=== PATIENT | female | born 1970 | race American Indian/Alaskan Native ===

== ENCOUNTER 2019-09-18 17:22 | Emergency (ER) | payer SELFPAY ==
--- NOTE | 2019-09-18 17:45 | Emergency Department Report ---
Blank Doc - Documentation Documentation: 48-year-old female that presents with bilateral flank pain. This initial assessment/diagnostic orders/clinical plan/treatment(s) is/are subject to change based on patient's health status, clinical progression and re- assessment by fellow clinical providers in the ED. Further treatment and workup at subsequent clinical providers discretion. Patient/guardians urged not to elope from the ED as their condition may be serious if not clinically assessed and managed. Initial orders include: 1- Patient sent to [facility] for further evaluation and treatment 2- UA
[2019-09-18 17:46] VITALS: BP 144/102
[2019-09-18 18:38] LABS: Bilirubin,Urine NEG (Negative); Blood,Urine NEG (Negative); Color,Urine Yellow (Yellow); Mucus,Urine FEW /HPF; Protein,Urine <15 mg/dL mg/dL (Negative); Urobilinogen,Urine < 2.0 mg/dL (<2.0)
[2019-09-18] MEDS ORDERED: HYDROcodone/ACETAMINOPHEN 7.5-325MG TAB PO ONE (20:05)
[2019-09-18] MEDS ORDERED: KETOROLAC 30 MG/1 ML INJ IM ONE (20:05)
[2019-09-18] MEDS ORDERED: ONDANSETRON 4 MG ODT TAB PO ONE (20:05)
[2019-09-18] MEDS ORDERED: CYCLOBENZAPRINE 10 MG TAB PO ONE (20:05)
[2019-09-18] MEDS ORDERED: dexAMETHasone 20 MG/5 ML VIAL IM ONE (20:05)
--- NOTE | 2019-09-18 21:31 | Emergency Department Report ---
ED Back Pain/Injury HPI - General Chief Complaint: Back Pain/Injury Stated Complaint: BACK PAIN Time Seen by Provider: 09/18/19 17:45 Source: patient Limitations: No Limitations - History of Present Illness Initial Comments: Patient is a 48-year-old -Monegasque female with a history of hypertension presents to the ED with contrast of acute onset persistent nontraumatic low back pain for the last 2 days. Patient states that the pain is worse with any movement or palpation of lower back diffusely. Patient denies heavy lifting, hematochezia, follow, numbness and tingling or weakness of lower extremities bilaterally, saddle paresthesia, abdominal pain, nausea, vomiting, diarrhea, fever, chills, urinary or bowel incontinence, dysuria, urinary frequency and urgency and hematuria. MD Complaint: back pain (lower back pain) -: Sudden, days(s) (2) Similar Symptoms Previously: No Place: home Radiation: none Severity: severe Severity scale (0 -10): 8 Quality: sharp, aching Consistency: constant Improves With: none Worsens With: movement, walking Context: other (spontaneous) Associated Symptoms: denies other symptoms. denies: confusion, weakness, chest pain, numbness, difficulty walking, cough, difficulty urinating, diaphoresis, incontinence, fever/chills, constipation, headaches, abdominal pain, loss of appetite, nausea/vomiting, rash, seizure, shortness of breath, other Treatments Prior to Arrival: heat therapy - Related Data Previous Rx's Medication Instructions Recorded Last Taken Type Butalbit/Acetamin/Caff/Codeine 1 each PO Q4HR PRN #20 capsule 01/09/14 Unknown Rx [Fioricet-Cod 12-55-295-40 Cap] Promethazine [Phenergan] 25 mg PO Q6H PRN #20 tablet 01/09/14 Unknown Rx Ondansetron [Zofran Odt] 4 mg PO Q8HR PRN #10 tab.rapdis 09/12/18 Unknown Rx Naproxen 500 mg PO Q12H PRN #30 tablet 09/18/19 Unknown Rx methOCARBAMOL [Robaxin TAB] 750 mg PO Q8H PRN #24 tablet 09/18/19 Unknown Rx predniSONE [Deltasone] 40 mg PO QDAY #10 tab 09/18/19 Unknown Rx traMADoL [Ultram 50 MG tab] 50 mg PO Q6HR PRN #10 tablet 09/18/19 Unknown Rx Allergies Allergy/AdvReac Type Severity Reaction Status Date / Time banana Allergy Angioedema Uncoded 01/08/14 20:42 nut Allergy Angioedema Uncoded 01/08/14 20:43 ED Review of Systems ROS: Stated complaint: BACK PAIN Other details as noted in HPI Constitutional: denies: chills, fever Eyes: denies: eye pain, eye discharge, vision change ENT: denies: ear pain, throat pain Respiratory: denies: cough, shortness of breath, wheezing Cardiovascular: denies: chest pain, palpitations Endocrine: no symptoms reported Gastrointestinal: denies: abdominal pain, nausea, diarrhea Genitourinary: denies: urgency, dysuria, discharge Musculoskeletal: back pain (MUSCLE SPASMS), arthralgia. denies: joint swelling Skin: denies: rash, lesions Neurological: denies: headache, weakness, paresthesias Psychiatric: denies: anxiety, depression Hematological/Lymphatic: denies: easy bleeding, easy bruising ED Past Medical Hx - Past Medical History Hx Hypertension: Yes Hx Headaches / Migraines: Yes - Surgical History Additional Surgical History: hysterectomy. tubal ligation. surgery after right arm fx - Social History Smoking Status: Current Every Day Smoker Substance Use Type: None - Medications Home Medications: Home Medications Medication Instructions Recorded Confirmed Last Taken Type Butalbit/Acetamin/Caff/Codeine 1 each PO Q4HR PRN #20 capsule 01/09/14 Unknown Rx [Fioricet-Cod [id number] Cap] Promethazine [Phenergan] 25 mg PO Q6H PRN #20 tablet 01/09/14 Unknown Rx Ondansetron [Zofran Odt] 4 mg PO Q8HR PRN #10 tab.rapdis 09/12/18 Unknown Rx Naproxen 500 mg PO Q12H PRN #30 tablet 09/18/19 Unknown Rx methOCARBAMOL [Robaxin TAB] 750 mg PO Q8H PRN #24 tablet 09/18/19 Unknown Rx predniSONE [Deltasone] 40 mg PO QDAY #10 tab 09/18/19 Unknown Rx traMADoL [Ultram 50 MG tab] 50 mg PO Q6HR PRN #10 tablet 09/18/19 Unknown Rx ED Physical Exam - General Limitations: No Limitations General appearance: alert, in no apparent distress - Head Head exam: Present: atraumatic, normocephalic, normal inspection - Eye Eye exam: Present: normal appearance, PERRL, EOMI Pupils: Present: normal accommodation - ENT ENT exam: Present: normal exam, normal orophraynx, mucous membranes moist, TM's normal bilaterally, normal external ear exam - Neck Neck exam: Present: normal inspection, full ROM - Respiratory Respiratory exam: Present: normal lung sounds bilaterally. Absent: respiratory distress, wheezes, rales, rhonchi, chest wall tenderness, accessory muscle use, decreased breath sounds, prolonged expiratory - Cardiovascular Cardiovascular Exam: Present: regular rate, normal rhythm, normal heart sounds. Absent: systolic murmur, diastolic murmur, rubs, gallop - GI/Abdominal GI/Abdominal exam: Present: soft, normal bowel sounds. Absent: tenderness, guarding, hyperactive bowel sounds, hypoactive bowel sounds, organomegaly - Extremities Exam Extremities exam: Present: normal inspection, full ROM, normal capillary refill - Back Exam Back exam: Present: normal inspection, full ROM, tenderness (palpable lumbosacral paraspinal musculoskeletal tenderness), muscle spasm, paraspinal tenderness - Neurological Exam Neurological exam: Present: alert, oriented X3, CN II-XII intact, normal gait, reflexes normal - Psychiatric Psychiatric exam: Present: normal affect, normal mood - Skin Skin exam: Present: warm, dry, intact, normal color. Absent: rash ED Course Vital Signs 09/18/19 09/18/19 17:44 20:39 Temperature 98.5 F Pulse Rate 78 Respiratory 18 18 Rate Blood Pressure 144/102 O2 Sat by Pulse 99 Oximetry ED Medical Decision Making - Medical Decision Making This is a 48-year-old female who presented to the ED with complaint of acute onset persistent nontraumatic low back pain for 2 days. In the ED, patient is alert and oriented 3 and is not in distress. Patient was treated for pain in the ED and urinalysis results is nonactionable. Patient symptoms are likely from musculoskeletal strains and muscle spasms of lumbosacral area. On reevaluation, patient's pain is well controlled with medications. Patient was discharged home on pain medications and muscle relaxants and advised to follow- up with her primary care physician in 7-10 days for reevaluation or return to the ED immediately if symptoms get worse. - Differential Diagnosis Muscle spasm; Muscle strain; acute low back pain; UTI Critical care attestation.: If time is entered above; I have spent that time in minutes in the direct care of this critically ill patient, excluding procedure time. ED Disposition Clinical Impression: Spasm of muscle of lower back, Strain of muscle, fascia and tendon of lower back, initial encounter Disposition: TO HOME OR SELFCARE Is pt being admited?: No Does the pt Need Aspirin: No Condition: Stable Instructions: Muscle Strain (ED), Muscle Spasm (ED), Low Back Strain (ED) Additional Instructions: Take medication with food, drink plenty fluids and follow-up with your primary care physician in 7-10 days for reevaluation. Return to the ED immediately if symptoms get worse. Prescriptions: predniSONE [Deltasone] 40 mg PO QDAY #10 tab Naproxen 500 mg PO Q12H PRN #30 tablet PRN Reason: Pain , Severe (7-10) methOCARBAMOL [Robaxin TAB] 750 mg PO Q8H PRN #24 tablet PRN Reason: Pain , Severe (7-10) traMADoL [Ultram 50 MG tab] 50 mg PO Q6HR PRN #10 tablet PRN Reason: Pain Referrals: [facility] [Outside] - 3-5 Days Forms: Work/School Release Form(ED) Time of Disposition: 21:31 Print Language: ROMANIAN
== END 2019-09-18 22:12 | disposition home or self-care (01) ==
LOC: ED 17:22
DX: S39.012A Strain of muscle, fascia and tendon of lower back, initial encounter (principal); M62.830 Muscle spasm of back; I10 Essential (primary) hypertension; G43.909 Migraine, unspecified, not intractable, without status migrainosus; Z98.51 Tubal ligation status; F17.200 Nicotine dependence, unspecified, uncomplicated; Z98.890 Other specified postprocedural states; Z91.018 Allergy to other foods; Z91.010 Allergy to peanuts; X58.XXXA Exposure to other specified factors, initial encounter; Y93.89 Activity, other specified; Y92.89 Other specified places as the place of occurrence of the external cause; Y99.8 Other external cause status
CPT/HCPCS: 81001; 96372; 99283; J1100; J1885; Q0162

== ENCOUNTER 2019-10-21 09:22 | Emergency (ER) | payer SELFPAY ==
[2019-10-21] MEDS ORDERED: traMADol 50 MG TAB PO ONE (12:08)
--- NOTE | 2019-10-21 12:10 | Emergency Department Report ---
ED Extremity Problem HPI - General Chief complaint: Extremity Problem,Nontraumatic Stated complaint: BILAT LEG PAIN Time Seen by Provider: 10/21/19 11:35 Source: patient Mode of arrival: Ambulatory Limitations: No Limitations - History of Present Illness Initial comments: This is a 48-year-old -Japanese female who presents to the emergency room for bilateral lower extremity pain for 2 weeks. Patient's patient states she had a ground-level fall 2 weeks ago walking into her home. She reports radiating pain from right hip to right foot and dull achy pain in left tibia- fibula to left foot. Reports pain is worse with weightbearing. She denies swelling, paresthesias, change in urinary or bowel pattern, bruising, or fever. MD Complaint: extremity pain Onset/Timin -: week(s) Location: bilateral lower extremity History of Same: No -: Yes arthralgia Radiation: none Severity scale (0 -10): 10 Quality: aching Consistency: intermittent Improves with: immobilization, other (heat) Worsens with: weight bearing Associated Symptoms: denies other symptoms - Related Data Previous Rx's Medication Instructions Recorded Last Taken Type Butalbit/Acetamin/Caff/Codeine 1 each PO Q4HR PRN #20 capsule 01/09/14 Unknown Rx [Fioricet-Cod 13-98-095-40 Cap] Promethazine [Phenergan] 25 mg PO Q6H PRN #20 tablet 01/09/14 Unknown Rx Ondansetron [Zofran Odt] 4 mg PO Q8HR PRN #10 tab.rapdis 09/12/18 Unknown Rx methOCARBAMOL [Robaxin TAB] 750 mg PO Q8H PRN #24 tablet 09/18/19 Unknown Rx predniSONE [Deltasone] 40 mg PO QDAY #10 tab 09/18/19 Unknown Rx Naproxen 500 mg PO Q12H PRN #30 tablet 10/21/19 Unknown Rx traMADoL [Ultram 50 MG tab] 50 mg PO Q6HR PRN #10 tablet 10/21/19 Unknown Rx Allergies Allergy/AdvReac Type Severity Reaction Status Date / Time banana Allergy Angioedema Uncoded 01/08/14 20:42 nut Allergy Angioedema Uncoded 01/08/14 20:43 ED Review of Systems ROS: Stated complaint: BILAT LEG PAIN Other details as noted in HPI Constitutional: denies: chills, fever Respiratory: denies: cough, shortness of breath, wheezing Cardiovascular: denies: chest pain, palpitations Gastrointestinal: denies: abdominal pain, nausea, diarrhea Musculoskeletal: arthralgia (BLE). denies: back pain, joint swelling Skin: denies: rash, lesions Neurological: denies: headache, weakness, paresthesias Psychiatric: denies: anxiety, depression ED Past Medical Hx - Past Medical History Previous Medical History?: Yes Hx Hypertension: Yes Hx Headaches / Migraines: Yes - Surgical History Past Surgical History?: Yes Additional Surgical History: hysterectomy. tubal ligation. surgery after right arm fx - Social History Smoking Status: Current Some Day Smoker Substance Use Type: None - Medications Home Medications: Home Medications Medication Instructions Recorded Confirmed Last Taken Type Butalbit/Acetamin/Caff/Codeine 1 each PO Q4HR PRN #20 capsule 01/09/14 Unknown Rx [Fioricet-Cod 49-85-303-40 Cap] Promethazine [Phenergan] 25 mg PO Q6H PRN #20 tablet 01/09/14 Unknown Rx Ondansetron [Zofran Odt] 4 mg PO Q8HR PRN #10 tab.rapdis 09/12/18 Unknown Rx methOCARBAMOL [Robaxin TAB] 750 mg PO Q8H PRN #24 tablet 09/18/19 Unknown Rx predniSONE [Deltasone] 40 mg PO QDAY #10 tab 09/18/19 Unknown Rx Naproxen 500 mg PO Q12H PRN #30 tablet 10/21/19 Unknown Rx traMADoL [Ultram 50 MG tab] 50 mg PO Q6HR PRN #10 tablet 10/21/19 Unknown Rx ED Physical Exam - General Limitations: No Limitations General appearance: alert, in no apparent distress - Respiratory Respiratory exam: Present: normal lung sounds bilaterally. Absent: respiratory distress - Cardiovascular Cardiovascular Exam: Present: regular rate, normal rhythm. Absent: systolic murmur, diastolic murmur, rubs, gallop - GI/Abdominal GI/Abdominal exam: Present: soft, normal bowel sounds - Extremities Exam Extremities exam: Present: full ROM, normal capillary refill. Absent: pedal edema, joint swelling, calf tenderness - Expanded Lower Extremity Exam Left Upper Leg exam: Present: normal inspection, full ROM Knee exam: Present: normal inspection, full ROM Lower Leg exam: Present: full ROM. Absent: tenderness, swelling, abrasion, laceration, ecchymosis, deformity, crepidus, dislocation, erythema, palpable cord, Daniela's sign Ankle exam: Present: full ROM (pain with FROM), tenderness (TTP of distal fibula). Absent: swelling, abrasion, laceration, ecchymosis, deformity, crepidus, dislocation, erythema, anterior draw sign Foot/Toe exam: Present: normal inspection, full ROM Neuro vascular tendon exam: Present: no vascular compromise Gait: Positive: observed and limited by pain Right Upper Leg exam: Present: normal inspection, full ROM Knee exam: Present: normal inspection, full ROM Lower Leg exam: Present: normal inspection, full ROM Ankle exam: Present: normal inspection, full ROM Foot/Toe exam: Present: normal inspection, full ROM Neuro vascular tendon exam: Present: no vascular compromise Gait: Positive: observed and limited by pain - Back Exam Back exam: Present: full ROM, paraspinal tenderness (left sacroiliac TTP, positive SLT on right). Absent: muscle spasm, vertebral tenderness, rash noted - Neurological Exam Neurological exam: Present: alert, oriented X3 - Psychiatric Psychiatric exam: Present: normal affect, normal mood - Skin Skin exam: Present: warm, dry, intact, normal color. Absent: rash ED Course Vital Signs 10/21/19 09:57 Temperature 98.7 F Pulse Rate 82 Respiratory 18 Rate Blood Pressure 130/90 O2 Sat by Pulse 97 Oximetry ED Medical Decision Making - Radiology Data Radiology results: report reviewed LEFT TIBIA AND FIBULA 2 VIEWS INDICATION / CLINICAL INFORMATION: pain s/p fall COMPARISON: None available. FINDINGS: BONES / JOINT(S): No acute fracture or subluxation. No significant arthritis. SOFT TISSUES: No significant abnormality. ADDITIONAL FINDINGS: None. LEFT FOOT 3 VIEWS INDICATION / CLINICAL INFORMATION: lateral pain s/p fall. COMPARISON: None available. FINDINGS: No fracture or other significant skeletal abnormality of the foot. On one image, there appears to be discontinuity of the very distal fibula, p ossibly ununited ossification center. If this area is of concern clinically, suggest radiograph of the ankle. - Medical Decision Making This is a 48 y.o. female that presents with BLE pain. Patient is stable and examined by me. Vitals are normal. Xrays of the left tibia-fibula and left foot obtained. Normal left foot x-ray. No fracture or other significant skeletal ab normality of the foot. On one image, there appears to be discontinuity of the very distal fibula, possibly ununited ossification center. If this area is of concern clinically, suggest radiograph of the ankle. Given analgesics while in the ER. A posterior/anterior leg splint was applied to left lower extremity. Patient given crutches with education. Referral to orthopedic surgery for continued care. Start Tramadol and naproxen. Patient agrees to ED plan of care. Discharged home stable. Follow up with PCP in 3 days. Critical care attestation.: If time is entered above; I have spent that time in minutes in the direct care of this critically ill patient, excluding procedure time. ED Disposition Clinical Impression: Bilateral lower extremity pain Left fibular fracture Qualifiers: Encounter type: initial encounter Fibula location: distal Fracture type: closed Fracture morphology: unspecified fracture morphology Qualified Code(s): S82.832A - Other fracture of upper and lower end of left fibula, initial encounter for closed fracture Disposition: - TO HOME OR SELFCARE Is pt being admited?: No Condition: Stable Instructions: Arthralgia (ED), Ankle Fracture (ED) Additional Instructions: Take your pain medication every 6-8 hours as needed for pain. Avoid applying weight to the left leg. Follow-up with orthopedic surgeon provided in the referral list below. Return to the emergency room with worsening symptoms. Prescriptions: Naproxen 500 mg PO Q12H PRN #30 tablet PRN Reason: Pain , Severe (7-10) traMADoL [Ultram 50 MG tab] 50 mg PO Q6HR PRN #10 tablet PRN Reason: Pain Referrals: PARMJIT EDOUARD MD [Staff Physician] - 3-5 Days [facility] [Provider Group] - 3-5 Days [facility] [Outside] - 3-5 Days JOSE CRALOS MONTOYA MD [Staff Physician] - 3-5 Days RUSTY HILLMAN MD [Staff Physician] - 3-5 Days Forms: Work/School Release Form(ED) Time of Disposition: 14:30
--- NOTE | 2019-10-21 14:01 | XRay Report ---
LEFT FOOT 3 VIEWS INDICATION / CLINICAL INFORMATION: lateral pain s/p fall. COMPARISON: None available. FINDINGS: No fracture or other significant skeletal abnormality of the foot. On one image, there appears to be discontinuity of the very distal fibula, possibly ununited ossifica tion center. If this area is of concern clinically, suggest radiograph of the ankle. Signer Name: Spencer Spencer MD Signed: 10/21/2019 1:56 PM Workstation Name: [id number]
--- NOTE | 2019-10-21 14:05 | XRay Report ---
LEFT TIBIA AND FIBULA 2 VIEWS INDICATION / CLINICAL INFORMATION: pain s/p fall COMPARISON: None available. FINDINGS: BONES / JOINT(S): No acute fracture or subluxation. No significant arthritis. SOFT TISSUES: No significant abnormality. ADDITIONAL FINDINGS: None. Signer Name: Ian Armijo MD Signed: 10/21/2019 2:00 PM Workstation Name: [id number]
[2019-10-21 15:02] VITALS: BP 128/88
== END 2019-10-21 14:50 | disposition home or self-care (01) ==
LOC: ED 09:22
DX: S82.832A Other fracture of upper and lower end of left fibula, initial encounter for closed fracture (principal); M79.604 Pain in right leg; I10 Essential (primary) hypertension; G43.909 Migraine, unspecified, not intractable, without status migrainosus; F17.200 Nicotine dependence, unspecified, uncomplicated; Z98.51 Tubal ligation status; Z79.899 Other long term (current) drug therapy; Z90.710 Acquired absence of both cervix and uterus; Z91.018 Allergy to other foods

== ENCOUNTER 2020-10-19 14:23 | Emergency (ER) | payer SELFPAY ==
[2020-10-19 15:02] VITALS: BP 136/89
--- NOTE | 2020-10-19 16:43 | Emergency Department Report ---
ED Lower Extremity HPI - General Chief Complaint: Extremity Injury, Lower Stated Complaint: FOOT INJURY Time Seen by Provider: 10/19/20 16:40 Source: patient Mode of arrival: Wheelchair Limitations: No Limitations - History of Present Illness Initial Comments: Patient is a 49-year-old female presents emergency room complaints of left foot injury that occurred just prior to arrival. She states that she was on top of an ottoman and stepping down and she accidentally stepped on a shoe and had a injury of her left foot which caused her to fall onto the ground. She states that she has associated pain and swelling in her left foot. She denies any ankle pain. She has not been ambulatory secondary to pain. She denies ever injuring in the past. She states that she did hear a cracking sound. She denies any numbness or weakness. She has a history of hypertension and was diagnosed with COVID-19 yesterday but denies any complications. No allergies to medications. She had a partial hysterectomy. - Related Data Previous Rx's Medication Instructions Recorded Last Taken Type Butalbit/Acetamin/Caff/Codeine 1 each PO Q4HR PRN #20 capsule 01/09/14 Unknown Rx [Fioricet-Cod 79-72-470-40 Cap] Promethazine [Phenergan] 25 mg PO Q6H PRN #20 tablet 01/09/14 Unknown Rx Ondansetron [Zofran Odt] 4 mg PO Q8HR PRN #10 tab.rapdis 09/12/18 Unknown Rx methOCARBAMOL [Robaxin TAB] 750 mg PO Q8H PRN #24 tablet 09/18/19 Unknown Rx predniSONE [Deltasone] 40 mg PO QDAY #10 tab 09/18/19 Unknown Rx Naproxen 500 mg PO Q12H PRN #30 tablet 10/21/19 Unknown Rx traMADoL [Ultram 50 MG tab] 50 mg PO Q6HR PRN #10 tablet 10/21/19 Unknown Rx Naproxen [EC-Naproxen] 500 mg PO BID PRN #14 tablet. 10/19/20 Unknown Rx Allergies Allergy/AdvReac Type Severity Reaction Status Date / Time banana Allergy Angioedema Uncoded 01/08/14 20:42 nut Allergy Angioedema Uncoded 01/08/14 20:43 ED Review of Systems ROS: Stated complaint: FOOT INJURY Other details as noted in HPI Comment: All other systems reviewed and negative ED Past Medical Hx - Past Medical History Previous Medical History?: Yes Hx Hypertension: Yes Hx Headaches / Migraines: Yes Additional medical history: COVID 19 - Surgical History Past Surgical History?: Yes Additional Surgical History: hysterectomy. tubal ligation. surgery after right arm fx - Social History Smoking Status: Current Some Day Smoker Substance Use Type: None - Medications Home Medications: Home Medications Medication Instructions Recorded Confirmed Last Taken Type Butalbit/Acetamin/Caff/Codeine 1 each PO Q4HR PRN #20 capsule 01/09/14 Unknown Rx [Fioricet-Cod 97-33-786-40 Cap] Promethazine [Phenergan] 25 mg PO Q6H PRN #20 tablet 01/09/14 Unknown Rx Ondansetron [Zofran Odt] 4 mg PO Q8HR PRN #10 tab.rapdis 09/12/18 Unknown Rx methOCARBAMOL [Robaxin TAB] 750 mg PO Q8H PRN #24 tablet 09/18/19 Unknown Rx predniSONE [Deltasone] 40 mg PO QDAY #10 tab 09/18/19 Unknown Rx Naproxen 500 mg PO Q12H PRN #30 tablet 10/21/19 Unknown Rx traMADoL [Ultram 50 MG tab] 50 mg PO Q6HR PRN #10 tablet 10/21/19 Unknown Rx Naproxen [EC-Naproxen] 500 mg PO BID PRN #14 tablet.dr 10/19/20 Unknown Rx ED Physical Exam - General Limitations: No Limitations General appearance: alert, in no apparent distress - Head Head exam: Present: atraumatic, normocephalic - Eye Eye exam: Present: normal appearance - ENT ENT exam: Present: mucous membranes moist - Respiratory Respiratory exam: Absent: respiratory distress, accessory muscle use - Extremities Exam Extremities exam: Present: other (ttp and edema present to the left lateral foot, no obvious deformity, no ttp of the ankle or toes, neurovascularly intact) - Neurological Exam Neurological exam: Present: alert, oriented X3 - Psychiatric Psychiatric exam: Present: normal affect, normal mood - Skin Skin exam: Present: warm, dry, intact ED Course Vital Signs 10/19/20 15:00 Temperature 98.5 F Pulse Rate 84 Respiratory 18 Rate Blood Pressure 136/89 [Right] O2 Sat by Pulse 98 Oximetry ED Lower Extremity MDM - Radiology Data Radiology results: report reviewed Ordering Physician: LAURIE MARION Date of Service: 10/19/20 Procedure(s): XR foot 3+V LT Accession Number(s): [id number] cc: LAURIE MARION Fluoro Time In Minutes: LEFT FOOT 3 VIEWS INDICATION: Left foot pain and edema after fall. COMPARISON: No relevant prior imaging study available. FINDINGS: No acute, displaced fracture or dislocation. Os perineum is incidentally noted. No foreign bodies or soft tissue gas. No significant degenerative changes. IMPRESSION: 1. No acute findings. Signer Name: Taqueria Galvez MD Signed: 10/19/2020 5:14 PM Workstation Name: [id number] Transcribed By: JANEY Dictated By: Taqueria Galvez MD Electronically Authenticated By: Taqueria Galvez MD Signed Date/Time: 10/19/201713 DD/ 12 TD/TT: - Medical Decision Making Patient is a 49-year-old female presents emergency room complaints of left foot injury that occurred just prior to arrival. She states that she was on top of an ottoman and stepping down and she accidentally stepped on a shoe and had a injury of her left foot which caused her to fall onto the ground. She states that she has associated pain and swelling in her left foot. She denies any ankle pain. She has not been ambulatory secondary to pain. She denies ever injuring in the past. She states that she did hear a cracking sound. She denies any numbness or weakness. She has a history of hypertension and was diagnosed with COVID-19 yesterday but denies any complications. No allergies to medications. She had a partial hysterectomy. vss. on exam: ttp and edema present to the left lateral foot, no obvious deformity, no ttp of the ankle or toes, neurovascularly intact. XR left foot: 1. No acute findings. Symptoms likely related to left foot sprain. Discussed all results with patient and answered questions. Patient placed in postop orthopedic shoe and given crutches by nurse and remained neurovascular intact. Patient given prescription for naproxen. Advised patient Please take medication as prescribed as needed. Please do not bear weight on the leg until you have been cleared by orthopedic doctor. Please follow-up with orthopedic. May use ice for 15 minutes at a time, rest, elevation of the leg. Return to emergency room for new or worsening symptoms. - Differential Diagnosis Strain, sprain, fracture, dislocation, contusion, tendinitis Critical care attestation.: If time is entered above; I have spent that time in minutes in the direct care of this critically ill patient, excluding procedure time. ED Disposition Clinical Impression: Sprain of left foot Qualifiers: Encounter type: initial encounter Qualified Code(s): S93.602A - Unspecified sprain of left foot, initial encounter Disposition: TO HOME OR SELFCARE Is pt being admited?: No Does the pt Need Aspirin: No Condition: Stable Instructions: Foot Sprain Additional Instructions: Please take medication as prescribed as needed. Please do not bear weight on the leg until you have been cleared by orthopedic doctor. Please follow-up with orthopedic. May use ice for 15 minutes at a time, rest, elevation of the leg. Return to emergency room for new or worsening symptoms. Prescriptions: Naproxen [EC-Naproxen] 500 mg PO BID PRN #14 tablet.dr GUILLERMO Reason: pain Referrals: PRIMARY CAREMD [Primary Care Provider] - 2-3 Days PARMJIT EDOUARD MD [Staff Physician] - 2-3 Days [facility] [Provider Group] - 2-3 Days Time of Disposition: 17:20 Print Language: PALAUAN
--- NOTE | 2020-10-19 17:19 | XRay Report ---
LEFT FOOT 3 VIEWS INDICATION: Left foot pain and edema after fall. COMPARISON: No relevant prior imaging study available. FINDINGS: No acute, displaced fracture or dislocation. Os perineum is incidentally noted. No foreign bodies or soft tissue gas. No significant degenerative changes. IMPRESSION: 1. No acute findings. Signer Name: Taqueria Galvez MD Signed: 10/19/2020 5:14 PM Workstation Name: [id number]
== END 2020-10-19 18:53 | disposition home or self-care (01) ==
LOC: ED 14:23
DX: S93.602A Unspecified sprain of left foot, initial encounter (principal); I10 Essential (primary) hypertension; G43.909 Migraine, unspecified, not intractable, without status migrainosus; F17.200 Nicotine dependence, unspecified, uncomplicated; Z90.710 Acquired absence of both cervix and uterus; Z79.899 Other long term (current) drug therapy; Z91.018 Allergy to other foods; Z98.51 Tubal ligation status; Z98.890 Other specified postprocedural states; W18.30XA Fall on same level, unspecified, initial encounter; Y93.89 Activity, other specified; Y92.89 Other specified places as the place of occurrence of the external cause; Y99.8 Other external cause status

== ENCOUNTER 2020-12-14 10:23 | Emergency (ER) | payer SELFPAY ==
--- NOTE | 2020-12-14 10:47 | Event Note ---
ED Screening Note ED Screening Note: co headache photophobia and vomiting since she woke up this am pmh htn non adh with meds hysterectomy no cig/etoh/drugs This initial assessment/diagnostic orders/clinical plan/treatment(s) is/are subject to change based on patients health status, clinical progression and re- assessment by fellow clinical providers in the ED. Further treatment and workup at subsequent clinical providers discretion. Patient/guardian urged not to elope from the ED as their condition may be serious if not clinically assessed and managed. Initial orders include: ct ro sah labs/ekg
--- NOTE | 2020-12-14 12:07 | Cat Scan Report ---
CT head/brain wo con INDICATION / CLINICAL INFORMATION: 50 years Female; headache vomiting photophobia. TECHNIQUE: Routine CT head without contrast. All CT scans at this location are performed using CT dos e reduction for ALARA by means of automated exposure control. COMPARISON: None. FINDINGS: BRAIN / INTRACRANIAL CONTENTS: The brain appears to demonstrate appropriate attenuation for age. The ventricular system is within normal limits in size and configuration. There is no CT evidence of acut e intracranial hemorrhage or significant mass effect. ORBITS: No significant abnormality of visualized orbits. SINUSES / MASTOIDS: No significant abnormality in the visualized paranasal sinuses or mastoid air orlin ls. CRANIOCERVICAL JUNCTION: No significant abnormality. ADDITIONAL FINDINGS: None. IMPRESSION: 1. There is no CT evidence of acute intracranial process. Signer Name: Joni Jaeger MD Signed: 12/14/2020 12:03 PM Workstation Name: [id number]
[2020-12-14 12:50] LABS: Alanine Aminotransferase 12 units/L (7-56); Albumin 4.2 g/dL (3.9-5); Blood Urea Nitrogen 8 mg/dL (7-17); Calcium 9.1 mg/dL (8.4-10.2); Hemolysis Index 7
[2020-12-14 12:52] LABS: BUN/Creatinine Ratio 11
[2020-12-14 13:37] LABS: Basophils % (Auto) 0.5 % (0.0-1.8); Eosinophils # (Auto) 0.2 K/mm3 (0.0-0.4); Eosinophils % (Auto) 1.9 % (0.0-4.3); Hemoglobin 13.3 gm/dl (10.1-14.3); Lymphocytes # (Auto) 2.3 K/mm3 (1.2-5.4); Lymphocytes % (Auto) 26.8 % (13.4-35.0); Mean Corpuscular HGB Conc 33 % (30-34); Mean Corpuscular Volume 93 fl (79-97); Monocytes # (Auto) 0.6 K/mm3 (0.0-0.8); Monocytes % (Auto) 6.6 % (0.0-7.3); Platelet Count 304 K/mm3 (140-440); Red Blood Count 4.33 M/mm3 (3.65-5.03); Red Cell Distribution Width 13.2 % (13.2-15.2)
--- NOTE | 2020-12-14 14:00 | Emergency Department Report ---
ED General Adult HPI - General Chief complaint: Headache Stated complaint: MIGRAINE/VOMITING/BLURR VISION Time Seen by Provider: 12/14/20 10:45 Source: patient Mode of arrival: Ambulatory Limitations: No Limitations - History of Present Illness Initial comments: Patient is a 50-year-old female with history of migraines presents to emergency department for evaluation of frontal headache radiating down the left side of her head which woke her from sleep this morning. Patient states she tried to take ibuprofen this morning but promptly vomited. Patient complains of persistent headache, denies neurologic changes, denies localized weakness, denies chest pain, denies sensory changes. - Related Data Previous Rx's Medication Instructions Recorded Last Taken Type Butalbit/Acetamin/Caff/Codeine 1 each PO Q4HR PRN #20 capsule 01/09/14 Unknown Rx [Fioricet-Cod 35-45-469-40 Cap] Promethazine [Phenergan] 25 mg PO Q6H PRN #20 tablet 01/09/14 Unknown Rx Ondansetron [Zofran Odt] 4 mg PO Q8HR PRN #10 tab.rapdis 09/12/18 Unknown Rx methOCARBAMOL [Robaxin TAB] 750 mg PO Q8H PRN #24 tablet 09/18/19 Unknown Rx predniSONE [Deltasone] 40 mg PO QDAY #10 tab 09/18/19 Unknown Rx Naproxen 500 mg PO Q12H PRN #30 tablet 10/21/19 Unknown Rx traMADoL [Ultram 50 MG tab] 50 mg PO Q6HR PRN #10 tablet 10/21/19 Unknown Rx Naproxen [EC-Naproxen] 500 mg PO BID PRN #14 tablet. 10/19/20 Unknown Rx Allergies Allergy/AdvReac Type Severity Reaction Status Date / Time banana Allergy Angioedema Uncoded 01/08/14 20:42 nut Allergy Angioedema Uncoded 01/08/14 20:43 ED Review of Systems ROS: Stated complaint: MIGRAINE/VOMITING/BLURR VISION Other details as noted in HPI Comment: All other systems reviewed and negative ED Past Medical Hx - Past Medical History Previous Medical History?: Yes Hx Hypertension: Yes Hx Headaches / Migraines: Yes Additional medical history: COVID 19 - Surgical History Past Surgical History?: Yes Additional Surgical History: hysterectomy. tubal ligation. surgery after right arm fx - Social History Smoking Status: Never Smoker Substance Use Type: None - Medications Home Medications: Home Medications Medication Instructions Recorded Confirmed Last Taken Type Butalbit/Acetamin/Caff/Codeine 1 each PO Q4HR PRN #20 capsule 01/09/14 Unknown Rx [Fioricet-Cod 08-96-732-40 Cap] Promethazine [Phenergan] 25 mg PO Q6H PRN #20 tablet 01/09/14 Unknown Rx Ondansetron [Zofran Odt] 4 mg PO Q8HR PRN #10 tab.rapdis 09/12/18 Unknown Rx methOCARBAMOL [Robaxin TAB] 750 mg PO Q8H PRN #24 tablet 09/18/19 Unknown Rx predniSONE [Deltasone] 40 mg PO QDAY #10 tab 09/18/19 Unknown Rx Naproxen 500 mg PO Q12H PRN #30 tablet 10/21/19 Unknown Rx traMADoL [Ultram 50 MG tab] 50 mg PO Q6HR PRN #10 tablet 10/21/19 Unknown Rx Naproxen [EC-Naproxen] 500 mg PO BID PRN #14 tablet.dr 10/19/20 Unknown Rx ED Physical Exam - General Limitations: No Limitations General appearance: alert, in no apparent distress - Head Head exam: Present: atraumatic, normocephalic - Eye Eye exam: Present: normal appearance - ENT ENT exam: Present: mucous membranes moist - Neck Neck exam: Present: normal inspection - Respiratory Respiratory exam: Present: normal lung sounds bilaterally. Absent: respiratory distress - Cardiovascular Cardiovascular Exam: Present: regular rate, normal rhythm - GI/Abdominal GI/Abdominal exam: Present: soft, normal bowel sounds - Extremities Exam Extremities exam: Present: normal inspection - Back Exam Back exam: Present: normal inspection - Neurological Exam Neurological exam: Present: alert, oriented X3 - Psychiatric Psychiatric exam: Present: normal affect, normal mood - Skin Skin exam: Present: warm, dry, intact, normal color. Absent: rash ED Course Vital Signs 12/14/20 12/14/20 10:45 14:17 Temperature 98.5 F 98.9 F Pulse Rate 73 71 Respiratory 18 18 Rate Blood Pressure 139/109 Blood Pressure 141/91 [Left] O2 Sat by Pulse 97 100 Oximetry - Reevaluation(s) Reevaluation #1: 12/14/20 14:05 Patient initially treated with IV normal saline, IV Reglan, IV Toradol. Reevaluation #2: 12/14/20 15:14 Patient reevaluated and found to be in no acute distress. Neuro exam remains nonfocal, patient now denies headache. Patient advised to follow-up with regular doctor for reevaluation COVID-19 testing. ED Medical Decision Making - Lab Data Result diagrams: 12/14/20 11:53 12/14/20 11:53 Labs 12/14/20 12/14/20 12/14/20 11:53 11:53 11:53 WBC 8.5 RBC 4.33 Hgb 13.3 Hct 40.0 MCV 93 MCH 31 MCHC 33 RDW 13.2 Plt Count 304 Lymph % (Auto) 26.8 Winkler % (Auto) 6.6 Eos % (Auto) 1.9 Baso % (Auto) 0.5 Lymph # (Auto) 2.3 Winkler # (Auto) 0.6 Eos # (Auto) 0.2 Baso # (Auto) 0.0 Seg Neutrophils % 64.2 Seg Neutrophils # 5.4 Sodium 139 Potassium 3.9 Chloride 106.7 Carbon Dioxide 25 Anion Gap 11 BUN 8 Creatinine 0.7 Estimated GFR > 60 BUN/Creatinine Ratio 11 Glucose 97 Calcium 9.1 Total Bilirubin 0.40 AST 20 ALT 12 Alkaline Phosphatase 112 Troponin T < 0.010 Total Protein 7.2 Albumin 4.2 Albumin/Globulin Ratio 1.4 Lipase 28 Vital Signs 12/14/20 12/14/20 10:45 14:17 Temperature 98.5 F 98.9 F Pulse Rate 73 71 Respiratory 18 18 Rate Blood Pressure 139/109 Blood Pressure 141/91 [Left] O2 Sat by Pulse 97 100 Oximetry - EKG Data -: EKG Interpreted by Me (Sinus rhythm at 62, no ST ST-T changes, normal QRS) Critical care attestation.: If time is entered above; I have spent that time in minutes in the direct care of this critically ill patient, excluding procedure time. ED Disposition Clinical Impression: Headache Disposition: DC-01 TO HOME OR SELFCARE Is pt being admited?: No Condition: Stable Instructions: General Headache Without Cause, [id number]-[id number] Additional Instructions: Please note you may benefit from outpatient COVID-19 testing as headache is often a presenting symptom. Return to the emergency department for worsening symptoms. Referrals: PRIMARY CARE, [Primary Care Provider] - 3-5 Days
[2020-12-14] MEDS ORDERED: SODIUM CHLORIDE 0.9% 1000 ML 1,000 ML IV ONE (14:04)
[2020-12-14] MEDS ORDERED: KETOROLAC 30 MG/1 ML INJ IV ONE (14:04)
[2020-12-14] MEDS ORDERED: METOCLOPRAMIDE 10 MG/2 ML INJ IV ONE (14:04)
--- NOTE | 2020-12-14 14:10 | XRay Report ---
CHEST 1 VIEW 12/14/2020 1:05 PM INDICATION / CLINICAL INFORMATION: chest pain. COMPARISON: None available. FINDINGS: SUPPORT DEVICES: None. HEART / MEDIASTINUM: No significant abnormality. LUNGS / PLEURA: No significant pulmonary or pleural abnormality. No pneumothorax. ADDITIONAL FINDINGS: No significant additional findings. IMPRESSION: No acute cardiopulmonary abnormality. Signer Name: Will Dempsey MD Signed: 12/14/2020 2:06 PM Workstation Name: [id number]
[2020-12-14 14:17] VITALS: BP 141/91
[2020-12-14 15:24] LABS: Bilirubin,Urine NEG (Negative); Blood,Urine NEG (Negative); Color,Urine Yellow (Yellow); Mucus,Urine 2+ /HPF; Protein,Urine <15 mg/dL mg/dL (Negative); WBC,Urine < 1.0 /HPF (0.0-6.0)
[2020-12-14 15:31] LABS: HCG Qualitative,Urine Negative (Negative)
== END 2020-12-14 15:29 | disposition home or self-care (01) ==
LOC: ED 10:23
DX: R51.9 Headache, unspecified (principal); I10 Essential (primary) hypertension; Z79.899 Other long term (current) drug therapy; Z91.018 Allergy to other foods; Z90.710 Acquired absence of both cervix and uterus; Z98.51 Tubal ligation status; Z98.890 Other specified postprocedural states
CPT/HCPCS: 36415; 70450; 71045; 80053; 81001; 81025; 83690; 84484; 85025; 93005; 96361; 96374; 96375; 99284; J1885; J2765; J7030

== ENCOUNTER 2021-01-31 03:17 | Emergency (ER) | payer OTHER ==
[2021-01-31 03:40] VITALS: BP 132/88
[2021-01-31] MEDS ORDERED: predniSONE 20 MG TAB PO ONE (04:54)
[2021-01-31] MEDS ORDERED: ONDANSETRON 4 MG ODT TAB PO ONE (04:54)
[2021-01-31] MEDS ORDERED: oxyCODONE /ACETAMINOPHEN 5-325MG TAB PO ONE (04:54)
[2021-01-31] MEDS ORDERED: IBUPROFEN 600 MG TAB PO ONE (04:54)
--- NOTE | 2021-01-31 05:12 | Emergency Department Report ---
ED Back Pain/Injury HPI - General Chief Complaint: Back Pain/Injury Stated Complaint: PAIN FROM LOWER BACK DOWN TO RIGHT LEG Source: patient Limitations: No Limitations - History of Present Illness Initial Comments: Patient is a 50-year-old -[place] female with a history of hypertension and migraine headaches who presents to the ED with complaint of acute onset persistent nontraumatic right lateral low back pain that radiates to the right leg and hip for the last 3 days, worse in the last 6 hours. Patient states that the pain has been gradually getting worse especially with any movement and about 6 hours ago when she tried to wake up she is unable to bear weight on the right leg because of severe low back pain. Patient denies fall, traumatic injury, heavy lifting, nausea, vomiting, chest pain, shortness of breath, dysuria, urinary frequency and urgency, urinary retention, bowel incontinence, saddle paresthesia, numbness and tingling or weakness of lower extremities bilaterally. MD Complaint: back pain (Low back pain that radiates to the right leg) -: Sudden, days(s) (3) Similar Symptoms Previously: No Place: home Radiation: right leg Severity: severe Severity scale (0 -10): 8 Quality: sharp, aching Consistency: constant Improves With: none Worsens With: movement, sitting upright, walking Context: turning/twisting Associated Symptoms: denies other symptoms, difficulty walking (Due to severe pain). denies: confusion, weakness, chest pain, numbness, cough, difficulty urinating, diaphoresis, incontinence, constipation, headaches, abdominal pain, loss of appetite, malaise, nausea/vomiting, rash, seizure, shortness of breath, syncope, other - Related Data Previous Rx's Medication Instructions Recorded Last Taken Type Butalbit/Acetamin/Caff/Codeine 1 each PO Q4HR PRN #20 capsule 01/09/14 Unknown Rx [Fioricet-Cod [id number] Cap] Promethazine [Phenergan] 25 mg PO Q6H PRN #20 tablet 01/09/14 Unknown Rx Ondansetron [Zofran Odt] 4 mg PO Q8HR PRN #10 tab.rapdis 09/12/18 Unknown Rx methOCARBAMOL [Robaxin TAB] 750 mg PO Q8H PRN #24 tablet 09/18/19 Unknown Rx predniSONE [Deltasone] 40 mg PO QDAY #10 tab 11/14/19 Unknown Rx Naproxen 500 mg PO Q12H PRN #30 tablet 10/21/19 Unknown Rx traMADoL [Ultram 50 MG tab] 50 mg PO Q6HR PRN #10 tablet 10/21/19 Unknown Rx Naproxen [EC-Naproxen] 500 mg PO BID PRN #14 tablet. 10/19/20 Unknown Rx Ibuprofen [Motrin] 800 mg PO Q8HR PRN #30 tablet 01/31/21 Unknown Rx methOCARBAMOL [Robaxin TAB] 750 mg PO Q8H PRN #30 tablet 01/31/21 Unknown Rx predniSONE [Deltasone] 60 mg PO DAILY #15 tablet 01/31/21 Unknown Rx traMADoL [Ultram] 50 mg PO Q6HR PRN #12 tablet 01/31/21 Unknown Rx Allergies Allergy/AdvReac Type Severity Reaction Status Date / Time banana Allergy Angioedema Uncoded 01/08/14 20:42 nut Allergy Angioedema Uncoded 01/08/14 20:43 ED Review of Systems ROS: Stated complaint: PAIN FROM LOWER BACK DOWN TO RIGHT LEG Other details as noted in HPI Constitutional: denies: chills, fever Eyes: denies: eye pain, eye discharge, vision change ENT: denies: ear pain, throat pain Respiratory: denies: cough, shortness of breath, wheezing Cardiovascular: denies: chest pain, palpitations Endocrine: no symptoms reported Gastrointestinal: denies: abdominal pain, nausea, diarrhea Genitourinary: denies: urgency, dysuria, discharge Musculoskeletal: back pain (Severe low back pain that radiates to the right leg), arthralgia (Right leg pain). denies: joint swelling Skin: denies: rash, lesions Neurological: denies: headache, weakness, paresthesias Psychiatric: denies: anxiety, depression Hematological/Lymphatic: denies: easy bleeding, easy bruising ED Past Medical Hx - Past Medical History Previous Medical History?: Yes Hx Hypertension: Yes Hx Headaches / Migraines: Yes Additional medical history: COVID 19 - Surgical History Past Surgical History?: Yes Additional Surgical History: hysterectomy. tubal ligation. surgery after right arm fx - Social History Smoking Status: Former Smoker Substance Use Type: Alcohol - Medications Home Medications: Home Medications Medication Instructions Recorded Confirmed Last Taken Type Butalbit/Acetamin/Caff/Codeine 1 each PO Q4HR PRN #20 capsule 01/09/14 Unknown Rx [Fioricet-Cod [id number] Cap] Promethazine [Phenergan] 25 mg PO Q6H PRN #20 tablet 01/09/14 Unknown Rx Ondansetron [Zofran Odt] 4 mg PO Q8HR PRN #10 tab.rapdis 09/12/18 Unknown Rx methOCARBAMOL [Robaxin TAB] 750 mg PO Q8H PRN #24 tablet 09/18/19 Unknown Rx predniSONE [Deltasone] 40 mg PO QDAY #10 tab 09/18/19 Unknown Rx Naproxen 500 mg PO Q12H PRN #30 tablet 10/21/19 Unknown Rx traMADoL [Ultram 50 MG tab] 50 mg PO Q6HR PRN #10 tablet 10/21/19 Unknown Rx Naproxen [EC-Naproxen] 500 mg PO BID PRN #14 tablet.dr 10/19/20 Unknown Rx Ibuprofen [Motrin] 800 mg PO Q8HR PRN #30 tablet 01/31/21 Unknown Rx methOCARBAMOL [Robaxin TAB] 750 mg PO Q8H PRN #30 tablet 01/31/21 Unknown Rx predniSONE [Deltasone] 60 mg PO DAILY #15 tablet 01/31/21 Unknown Rx traMADoL [Ultram] 50 mg PO Q6HR PRN #12 tablet 01/31/21 Unknown Rx ED Physical Exam - General Limitations: No Limitations General appearance: alert, in no apparent distress - Head Head exam: Present: atraumatic, normocephalic, normal inspection - Eye Eye exam: Present: normal appearance, PERRL, EOMI - ENT ENT exam: Present: normal exam, normal orophraynx, mucous membranes moist, TM's normal bilaterally, normal external ear exam - Neck Neck exam: Present: normal inspection, full ROM - Respiratory Respiratory exam: Present: normal lung sounds bilaterally. Absent: respiratory distress, wheezes, rales, rhonchi, chest wall tenderness, accessory muscle use, decreased breath sounds, prolonged expiratory - Cardiovascular Cardiovascular Exam: Present: regular rate, normal rhythm, normal heart sounds. Absent: systolic murmur, diastolic murmur, rubs, gallop - GI/Abdominal GI/Abdominal exam: Present: soft, normal bowel sounds. Absent: distended, tenderness, guarding, rebound, hyperactive bowel sounds, hypoactive bowel sounds - Extremities Exam Extremities exam: Present: normal inspection, full ROM, tenderness (Palpable right hip tenderness), normal capillary refill - Back Exam Back exam: Present: normal inspection, full ROM, tenderness (Palpable right lateral lumbosacral paraspinal musculoskeletal tenderness), muscle spasm, paraspinal tenderness. Absent: CVA tenderness (R), CVA tenderness (L), vertebral tenderness - Neurological Exam Neurological exam: Present: alert, oriented X3, CN II-XII intact, normal gait, reflexes normal - Psychiatric Psychiatric exam: Present: normal affect, normal mood - Skin Skin exam: Present: warm, dry, intact, normal color. Absent: rash ED Course Vital Signs 01/31/21 03:32 Temperature 98.0 F Pulse Rate 85 Respiratory 16 Rate Blood Pressure 132/88 O2 Sat by Pulse 99 Oximetry ED Medical Decision Making - Medical Decision Making This is a 50-year-old -[place] female with a history of hypertension and migraine headaches who presents to the ED with complaint of acute onset persistent nontraumatic right lateral low back pain that radiates to the right leg and hip for the last 3 days, worse in the last 6 hours. Patient states that the pain has been gradually getting worse especially with any movement and about 6 hours ago when she tried to wake up she is unable to bear weight on the right leg because of severe low back pain. In the ED, patient is alert and oriented x3 and is not in any distress. Patient was treated for pain in the ED based on the history and physical exam exam findings. On reevaluation, patient pain is well controlled medication. Patient is hemodynamically stable and was advised to follow-up with her primary care physician in 3 to 5 days for reevaluation. Patient was advised return to the ED immediately if symptoms get worse. Patient was therefore discharged home on medications including muscle relaxants and pain medications. - Differential Diagnosis Muscle spasm; sciatica; low back pain; muscle strain Critical care attestation.: If time is entered above; I have spent that time in minutes in the direct care of this critically ill patient, excluding procedure time. ED Disposition Clinical Impression: Spasm of muscle of lower back, Strain of muscle, fascia and tendon of lower back, initial encounter Acute low back pain with right-sided sciatica Qualifiers: Back pain laterality: right Qualified Code(s): M54.41 - Lumbago with sciatica, right side Disposition: DC-01 TO HOME OR SELFCARE Is pt being admited?: No Does the pt Need Aspirin: No Condition: Stable Instructions: Muscle Cramps and Spasms, [id number], Sciatica, [id number], Low Back Sprain or Strain Rehab-SportsMed Additional Instructions: Your symptoms are likely due to muscle spasm, muscle strain or sciatica which is a nerve impingement. Therefore take medications as needed with food, drink plenty of fluids and follow-up with your primary care physician in 5 to 7 days for reevaluation. Return to the ED immediately if symptoms get worse. Prescriptions: predniSONE [Deltasone] 60 mg PO DAILY #15 tablet Ibuprofen [Motrin] 800 mg PO Q8HR PRN #30 tablet PRN Reason: Pain , Severe (7-10) methOCARBAMOL [Robaxin TAB] 750 mg PO Q8H PRN #30 tablet PRN Reason: Muscle Spasm traMADoL [Ultram] 50 mg PO Q6HR PRN #12 tablet PRN Reason: Pain Referrals: RUSTY HILLMAN MD [Staff Physician] - 3-5 Days Forms: Work/School Release Form(ED) Time of Disposition: 05:13 Print Language: TRINIDADIAN
== END 2021-01-31 05:38 | disposition home or self-care (01) ==
LOC: ED 03:17
DX: S39.012A Strain of muscle, fascia and tendon of lower back, initial encounter (principal); I10 Essential (primary) hypertension; G43.909 Migraine, unspecified, not intractable, without status migrainosus; Z79.899 Other long term (current) drug therapy; Z87.891 Personal history of nicotine dependence; Z98.51 Tubal ligation status; Z90.710 Acquired absence of both cervix and uterus; X58.XXXA Exposure to other specified factors, initial encounter; Y93.89 Activity, other specified; Y92.89 Other specified places as the place of occurrence of the external cause; Y99.8 Other external cause status
CPT/HCPCS: 99282; J7512; Q0162